=== PATIENT | male | born 1980 | race Caucasian/White ===

== ENCOUNTER 2019-10-30 15:58 | Emergency (ER) | payer OTHER ==
[~2019-10-30] VITALS: Ht 185.4 cm; Wt 79.4 kg
[~2019-10-30 15:58] MED LIST: AMOX500 PO; Advil200 M1 PO; CYCL10 PO; HYDACE10B PO; HYDACE5 PO; IBUP800 PO; Norco 5-325 Ta1 EACH PO; ONDA4ODT MM; OXYACE5T PO; PERM5TC TOP; PROM25 PO; RXHYDACE PO; Robaxin-750750 MG PO; SULI150 PO; SULTRIDS PO; Zofran Odt4 MG SL
== END 2019-10-30 17:29 | disposition home or self-care (01) ==
LOC: ER 15:58
DX: S81.011A Laceration without foreign body, right knee, initial encounter (principal); Z23 Encounter for immunization; Z88.5 Allergy status to narcotic agent; W01.0XXA Fall on same level from slipping, tripping and stumbling without subsequent striking against object, initial encounter
CPT/HCPCS: 12002; 90471; 90714; 99282-25

== ENCOUNTER 2021-09-22 23:30 | Emergency (ER) | payer OTHER ==
[~2021-09-22] VITALS: Ht 182.9 cm; Wt 74.8 kg
== END 2021-09-23 02:11 | disposition home or self-care (01) ==
LOC: ER 23:30
DX: S01.81XA Laceration without foreign body of other part of head, initial encounter (principal); S00.12XA Contusion of left eyelid and periocular area, initial encounter; F17.200 Nicotine dependence, unspecified, uncomplicated; Y04.2XXA Assault by strike against or bumped into by another person, initial encounter
CPT/HCPCS: 12013; 70450; 70486; 72125; 99284; A9270